=== PATIENT | male | born 1955 | race Two or more races ===

== ENCOUNTER 2020-09-28 11:17 | Emergency (ER) | payer MEDICARE, MEDICAID ==
[~2020-09-28] VITALS: Ht 177.8 cm; Wt 90.0 kg
[~2020-09-28 11:17] MED LIST: AMLO10TA80 MT; ATROPINE SULFATE 1MG/10ML SYR ONE; BISA10SU62 RC; DOCU-138 MT; ETOMIDATE 2MG/ML 10ML VIAL IV ONE; IPRA3AMP31 NEB; LEVE500T19 MT; LEVVL SQ; LOPE2CAP MT; MOM MT; SUCCINYLCHOLINE CHLORIDE 200MG/10ML IV ONE; TOPUD MT
[2020-09-28 14:38] LABS: HEMATOCRIT. 51.4 % (42.0-52.0); HEMOGLOBIN. 17.1 g/dL (14.0-18.0); MEAN CORPUSCULAR HEMOGLOBIN 30.7 pg (28.0-32.0); MEAN CORPUSCULAR VOLUME 92.6 fL (80.0-94.0); PLATELET 290 x1000/uL (130-400); RED BLOOD CELL COUNT 5.55 mill/uL (4.7-6.1); RED CELL DISTRIBUTION WIDTH 14.8 % (11.6-14.6)
[2020-09-28] MEDS: METOPROLOL TARTRATE 5MG/5ML VIAL IV SCH ×4 (14:40→19:45)
[2020-09-28 14:42] LABS: CHLORIDE 110 mEq/L (98-107)
[2020-09-28 14:49] LABS: BETA HYDROXYBUTYRATE 0.6 mMol/L (0.0-0.3)
[2020-09-28] MEDS ORDERED: SODIUM CHLORIDE 0.9% 1000ML BAG (SEPSIS BOLUS) IV ONE (15:00)
[2020-09-28] MEDS ORDERED: AZITHROMYCIN 500 MG in DEXT 5% WATER 250 ML IV SCH (15:00)
[2020-09-28] MEDS ORDERED: LEVOFLOXACIN 500MG PREMIX 100 ML IV ONE (15:00)
[2020-09-28] MEDS: PROPOFOL 10MG/ML 100ML 100 ML IV SCH ×2 (16:06→19:24)
[2020-09-28 16:49] LABS: PLATELET ESTIMATE NORMAL
[2020-09-28 17:04] LABS: BG BASE EXCESS -5.7 mmol/L (-2.0-2.0); BG CARBOXYHEMOGLOBIN 0.1 % (0.5-1.5); BG DEOXYHEMOGLOBIN 0.4 % (0.0-5.0); BG FRACTION INSPIRED OXYGEN 100; BG HCO3 ACT 18.4 mmol/L (22.0-26.0); BG METHEMOGLOBIN 0.4 % (0.0-1.5); BG OXYGEN SATURATION 99.6 % (92.0-98.5); BG OXYHEMOGLOBIN 99.1 % (94.0-97.0); BG PCO2 32.4 mmHg (35.0-45.0); BG PH 7.371 (7.350-7.450); BG PO2 362.9 mmHg (75.0-100.0); BG SAMPLE SITE RIGHT RADIAL; BG TOTAL RESPIRATORY RATE 17 b/min; BG VENT MODE VENT - AC
[2020-09-28 19:20] LABS: CLARITY URINE TURBID (CLEAR); COLOR URINE YELLOW (YELLOW); KETONES URINE TRACE (NEGATIVE); LEUKOCYTE ESTERASE URINE 2+ (NEGATIVE); NITRITE URINE NEGATIVE (NEGATIVE); OCCULT BLOOD URINE 3+ (NEGATIVE); PH URINE 6.5 (4.5-8.0); PROTEIN URINE 4+ (NEGATIVE); SPECIFIC GRAVITY URINE 1.027 (1.005-1.030); UROBILINOGEN URINE 0.2 E.U./dL (0.2-1.0)
[2020-09-28 19:31] LABS: *BARBITURATES SCREEN URINE NEGATIVE (NEGATIVE); *BENZODIAZEPINES SCREEN URINE NEGATIVE (NEGATIVE); *COCAINE SCREEN URINE NEGATIVE (NEGATIVE)
[2020-09-28 19:32] LABS: CANNABINOID URINE SCREEN NEGATIVE (NEGATIVE); METHADONE URINE SCREEN NEGATIVE (NEGATIVE); OPIATES URINE SCREEN NEGATIVE (NEGATIVE); PHENCYCLIDINE URINE SCREEN NEGATIVE (NEGATIVE)
[2020-09-28 19:34] LABS: *AMPHETAMINES SCREEN URINE NEGATIVE (NEGATIVE)
[2020-09-28] MEDS ORDERED: MIDAZOLAM HCL 100 MG in DEXT 5% WATER 80 ML IV ONE (21:00)
[2020-09-28] MEDS ORDERED: AZITHROMYCIN 500 MG in DEXT 5% WATER 250 ML IV NR (21:15)
[2020-09-28] MEDS ORDERED: MIDAZOLAM HCL 100 MG in DEXT 5% WATER 80 ML IV NR (21:15)
[2020-09-28] MEDS: MIDAZOLAM HCL 100 MG in SODIUM CHLORIDE 0.9% 100 ML IV NR (21:51)
[2020-09-28] MEDS ORDERED: PROPOFOL 10MG/ML 100ML 100 ML IV SCH (23:15)
[2020-09-29] MEDS ORDERED: SODIUM CHLORIDE 0.9% 1,000 ML IV ONE (03:15)
[2020-09-29 04:28] LABS: T4 FREE 1.07 ng/dL (0.76-1.46)
[2020-09-29] MEDS ORDERED: DEXT 5%/0.9% NACL 1,000 ML IV ONE (04:30)
[2020-09-29 04:47] LABS: PROSTRATE SPECIFIC AG TOTAL 1.36 ng/mL (0.0-4.0)
[2020-09-29 04:58] LABS: HEPATITIS B SURFACE ANTIGEN NEGATIVE
[2020-09-29 05:21] LABS: BASOPHILS % 0.5 % (0.0-2.0); EOSINOPHILS % 0.7 % (0.0-5.0); HEMATOCRIT. 47.4 % (42.0-52.0); HEMOGLOBIN. 15.5 g/dL (14.0-18.0); LYMPHOCYTES % 18.2 % (20.0-50.0); MEAN CORPUSCULAR HEMOGLOBIN 30.5 pg (28.0-32.0); MEAN PLATELET VOLUME 7.4 fl (7.4-10.4); MONOCYTES % 8.9 % (2.0-8.0); NEUTROPHILS % 71.7 % (40.0-76.0); PLATELET 248 x1000/uL (130-400); RED CELL DISTRIBUTION WIDTH 14.8 % (11.6-14.6)
[2020-09-29 05:25] LABS: CHLORIDE 115 mEq/L (98-107)
[2020-09-29 05:27] LABS: HEPATITIS A AB IGM NEGATIVE (NEGATIVE)
[2020-09-29 05:27] LABS: PARTIAL THROMBOPLASTIN TIME 29.3 sec (23.4-31.0); PROTHROMBIN TIME 10.9 sec (9.6-11.0)
[2020-09-29] MEDS: PROPOFOL 10MG/ML 100ML 100 ML IV SCH (10:27)
[2020-09-29] MEDS: MIDAZOLAM HCL 100 MG in SODIUM CHLORIDE 0.9% 100 ML IV NR (10:28)
[2020-09-29 10:36] LABS: T4 FREE 1.16 ng/dL (0.76-1.46)
[2020-09-29 14:15] VITALS: BP 130/77
== END 2020-09-29 14:32 | disposition short-term general hospital (02) ==
LOC: ER 11:47 → EDBEDREQTM 20:26 → EDBEDREQ 20:26 → CANBEDREQ 09-29 14:04 → ER 09-29 14:32
DX: J96.00 Acute respiratory failure, unspecified whether with hypoxia or hypercapnia (principal); A41.9 Sepsis, unspecified organism; E86.0 Dehydration; I48.91 Unspecified atrial fibrillation; D72.829 Elevated white blood cell count, unspecified; G40.909 Epilepsy, unspecified, not intractable, without status epilepticus; I11.0 Hypertensive heart disease with heart failure; I50.9 Heart failure, unspecified; J44.9 Chronic obstructive pulmonary disease, unspecified; F32.9 Major depressive disorder, single episode, unspecified; E11.9 Type 2 diabetes mellitus without complications; K21.9 Gastro-esophageal reflux disease without esophagitis; E78.00 Pure hypercholesterolemia, unspecified; Z86.73 Personal history of transient ischemic attack (TIA), and cerebral infarction without residual deficits; Z79.899 Other long term (current) drug therapy; Z20.822 Contact with and (suspected) exposure to COVID-19
CPT/HCPCS: 36415; 36600; 70450; 71045; 80053; 80061; 80076; 80305; 81003; 82010; 82140; 82375; 82805; 83036; 83605; 83655; 83880; 84145; 84153; 84439; 84443; 84481; 84484; 85025; 85379; 85610; 85651; 85730; 86592; 86705; 86709; 86803; 87040; 87086; 87340; 93005; 96361; 96365; 96367; 99285; C9803; J0330; J0456; J0461; J1956; J2250; J2704; J3490; J7030; J7042; J7050; J7060; U0003; U0005; 82941; 94002; 94003; G0103